=== PATIENT | female | born 1945 | race Caucasian/White ===

== ENCOUNTER 2017-12-19 23:54 | Emergency (ER) | payer MEDICARE, OTHER ==
[~2017-12-19] VITALS: Ht 154.9 cm; Wt 72.0 kg
[~2017-12-19 23:54] MED LIST: ACAR50TA11 PO; AMIT10TA6 PO; AMYL1CAP63 PO; CEPH500 PO; FERR-89 PO; GLIP10 PO; MECL12.585 PO; METF500T4 PO; PROZ10 PO; RIFAX550 PO; RISE35TA8 PO; SPIR25 PO; SUCR1TAB PO; TRAM50TA4 PO
[2017-12-20 00:03] LABS: GLUCOSE,POINT OF CARE 183 MG/DL (70-110)
[2017-12-20 01:30] VITALS: BP 114/80
== END 2017-12-20 01:50 | disposition home or self-care (01) ==
LOC: EMS 23:55
DX: S40.011A Contusion of right shoulder, initial encounter (principal); S09.90XA Unspecified injury of head, initial encounter; E11.9 Type 2 diabetes mellitus without complications; F32.9 Major depressive disorder, single episode, unspecified; I10 Essential (primary) hypertension; K74.60 Unspecified cirrhosis of liver; M48.00 Spinal stenosis, site unspecified; Z79.84 Long term (current) use of oral hypoglycemic drugs; Z88.0 Allergy status to penicillin; Z88.5 Allergy status to narcotic agent; Z90.710 Acquired absence of both cervix and uterus; W01.0XXA Fall on same level from slipping, tripping and stumbling without subsequent striking against object, initial encounter; Y93.89 Activity, other specified; Y92.89 Other specified places as the place of occurrence of the external cause; Y99.8 Other external cause status
CPT/HCPCS: 70450; 82962; 99284

== ENCOUNTER 2024-10-24 21:37 | Inpatient (IN) | payer MEDICARE, MEDICAID ==
[~2024-10-24] VITALS: Ht 154.9 cm; Wt 63.0 kg
[~2024-10-24 21:37] MED LIST changes: -ACAR50TA11 PO; +ACAR50TA2 PO; -AMIT10TA6 PO; +AMIT10TA7 PO; -CEPH500 PO; -FERR-89 PO; +FERR325T27 PO; +FLUO10CA24 PO; -GLIP10 PO; +GLIP10TA17 PO; +MECL-226 PO; -MECL12.585 PO; +METF-1211 PO; -METF500T4 PO; -PROZ10 PO; +SPIR-37 PO; -SPIR25 PO; -SUCR1TAB PO; +SUCR1TAB2 PO; -TRAM50TA4 PO; +TRAM50TA5 PO
[2024-10-24] MEDS ORDERED: 0.9% SODIUM CHLORIDE 10 ML SYRINGE IVP PRN (22:00)
[2024-10-24] MEDS: SODIUM CHLORIDE 0.9% 2,400 ML IV ONE (22:07)
[2024-10-24] MEDS: CefTRIAXone 1 GM/DEXTROSE 50 ML IV ONE (22:07)
[2024-10-24 22:16] LABS: EOSINOPHILS % (AUTO) 0 % (1.0-6.0); HEMATOCRIT 31.2 % (36-46); HEMOGLOBIN 9.9 g/dL (12.0-16.0); LYMPHOCYTES # (AUTO) 0.9 K/uL (1.0-4.8); LYMPHOCYTES % (AUTO) 7.8 % (22.0-44.0); MEAN CORPUSCULAR HEMOGLOBIN 25.6 pg (26.0-34.0); MEAN CORPUSCULAR HGB CONC 31.7 G/dL (31.0-37.0); MEAN CORPUSCULAR VOLUME 81 fL (80-100); MONOCYTES # (AUTO) 0.4 K/uL (0.1-1.0); MONOCYTES % (AUTO) 3.3 % (2.0-9.0); NEUTROPHILS # (AUTO) 10.8 K/uL (1.8-7.7); PLATELET COUNT (AUTO) 271 K/uL (150-450); RED BLOOD CELL COUNT(AUTO) 3.85 MIL/uL (4.00-5.20); RED CELL DISTRIBUTION WIDTH 15.5 % (11.5-14.5); WHITE BLOOD COUNT (AUTO) 12.1 K/uL (4.5-11.0)
[2024-10-24 22:21] LABS: NEUTROPHILS % (AUTO) 88.9 % (40.0-70.0)
[2024-10-24 22:25] LABS: PROTHROMBIN TIME 13.3 SEC (9.4-11.6)
[2024-10-24 22:33] LABS: LACTIC ACID 2.6 mmol/L (0.4-2.0); TROPONIN I-HIGH SENSITIVITY 9 ng/L (<51)
[2024-10-24 22:35] LABS: B-TYPE NATRIURETIC PEPTIDE 267 pg/mL (0-100)
[2024-10-24 22:36] LABS: ANION GAP 7 mmol/L (8-16); CALCIUM, TOTAL 7.9 mg/dL (8.8-10.5); CARBON DIOXIDE 30 mmol/L (22-29); CHLORIDE 101 mmol/L (98-107); CREATININE 1.61 mg/dL (0.60-1.30); GLOMERULAR FILTR. RATE CALC 31 mL/min (>60); GLUCOSE,RANDOM 351 mg/dL (70-110); LIPASE < 10 U/L (16-77); POTASSIUM 3.4 mmol/L (3.5-5.1); SODIUM SERUM 138 mmol/L (136-145); UREA NITROGEN, BLOOD 22 mg/dL (7-18)
[2024-10-24] MEDS: NOREPINEPHRINE 8 MG/0.9 % NACL 250 ML IV PRN (22:48)
[2024-10-24 23:05] LABS: COVID AG,FIA SOURCE NASAL SWAB
[2024-10-24 23:10] LABS: APPEARANCE,URINE CLEAR (CLEAR); BILIRUBIN,URINE NEGATIVE (NEGATIVE); COLOR,URINE YELLOW (YELLOW); GLUCOSE, URINE (UA) NEGATIVE (NEGATIVE); KETONES,URINE NEGATIVE (NEGATIVE); LEUKOCYTE ESTERASE ,URINE MODERATE (NEGATIVE); NITRATE,URINE NEGATIVE (NEGATIVE); OCCULT BLOOD,URINE NEGATIVE (NEGATIVE); PROTEIN,URINE TRACE mg/dL (NEGATIVE); SPECIFIC GRAVITIY, URINE 1.014 (1.003-1.030); UROBILINOGEN,URINE <=1.0 mg/dL (<=1.0)
[2024-10-24 23:27] LABS: BACTERIA,URINE Moderate /HPF (None Seen); RBC,URINE 0-2 /HPF (0-2)
[2024-10-24 23:28] LABS: INFLUENZA TYPE A NEGATIVE FOR TYPE A (NEGATIVE); INFLUENZA TYPE B NEGATIVE FOR TYPE B (NEGATIVE); SARS-COV2 (COVID) ANTIGEN,FIA Negative (Negative)
[2024-10-25] VITALS (8 sets, daily range): BP systolic 107–126; BP diastolic 54–58; PULSE 80–101; RESP 19–23; TEMP 97.3–97.7; O2SAT 93–99
[2024-10-25] MEDS ORDERED: ONDANSETRON HCL 4 MG/2 ML VIAL IVP PRN
[2024-10-25] MEDS ORDERED: DEXTROSE 50%-WATER 25 GM/50 ML SYRINGE IVP PRN
[2024-10-25] MEDS ORDERED: BISACODYL 10 MG RECTAL RECTAL SUPPOSITORY PR PRN
[2024-10-25] MEDS: HEPARIN SODIUM,PORCINE 5,000 UNITS/ML VIAL SQ SCH
[2024-10-25] MEDS: *CLINICAL-LEVOFLOXACIN IVPB DOSING CLINICAL ONE (00:05)
[2024-10-25] MEDS: VANCOMYCIN 1.25 GM/WATER(PEG) 250 ML IV ONE (00:30)
[2024-10-25] MEDS ORDERED: LEVOFLOXACIN 250 MG TABLET PO SCH (01:00)
[2024-10-25] MEDS: LEVOFLOXACIN 750 MG/D5% WATER 150 ML IV SCH (01:22)
[2024-10-25] MEDS: LORazepam 2 MG/ML VIAL IVP ONE (03:14)
[2024-10-25 05:41] LABS: CALCIUM, TOTAL 8.1 mg/dL (8.8-10.5); CREATININE 1.59 mg/dL (0.60-1.30); POTASSIUM 3.3 mmol/L (3.5-5.1)
[2024-10-25] MEDS ORDERED: VANCOMYCIN HCL 750 MG in DEXTROSE 5%-WATER 250 ML IV SCH (08:00)
[2024-10-25 08:10] LABS: ABG BASE EXCESS -1.2 mmol/L (-2.0-3.0); ABG CARBOXYHEMOGLOBIN 0.5 % (0.5-1.5); ABG HCO3 23.1 mmol/L (21.0-28.0); ABG METHEMOGLOBIN 0.3 % (0.0-1.5); ABG OXYGEN CONTENT 16.3 mL/dL (15.0-23.0); ABG OXYGEN SATURATION 95.3 % (94.0-98.0); ABG OXYHEMOGLOBIN 94.5 % (94.0-98.0); ABG PCO2 50 mmHg (32.0-45.0); ABG PH 7.315 (7.350-7.450); ABG TOTAL HEMOGLOBIN 12.2 G/dL (12.0-16.0); PO2, ARTERIAL BG 90.6 mmHg (83.0-108.0); SOURCE, BLOOD GAS ARTERIAL; TEMPERATURE, FAHRENHEIT, BG 99.1 FAHREN (96.0-98.6)
[2024-10-25 08:13] LABS: SITE, BLOOD GAS LFT RADIAL
[2024-10-25 08:14] LABS: ALLEN TEST, BLOOD GAS Positive; O2 DEVICE,BLOOD GAS NON REBREATHER (ROOM AIR)
[2024-10-25] MEDS ORDERED: SODIUM CHLORIDE 0.9% 500 ML IV ONE ×2 (09:11→14:39)
[2024-10-25] MEDS: PANTOPRAZOLE SODIUM 40 MG/VIAL IVP SCH (09:57)
[2024-10-25] MEDS: INSULIN LISPRO 100 UNITS/ML SQ PRN (09:58)
[2024-10-25] MEDS: POTASSIUM CHL 10 MEQ/WATER 50 ML IV PRN (09:59)
[2024-10-25 11:30] LABS: GLUCOMETER DEV NAME(LOC) ICUN.5; GLUCOSE,POINT OF CARE 234 MG/DL (70-110)
[2024-10-25] MEDS: VANCOMYCIN HCL 750 MG in DEXTROSE 5%-WATER 250 ML IV ONE (14:37)
[2024-10-25] MEDS ORDERED: DEXTROSE 5%-0.9% SODIUM CHL 1,000 ML IV SCH (18:30)
[2024-10-25 19:16] LABS: GLUCOMETER DEV NAME(LOC) ICU.S6; GLUCOSE,POINT OF CARE 93 MG/DL (70-110)
[2024-10-25 19:16] LABS: GLUCOMETER DEV NAME(LOC) ICU.S6; GLUCOSE,POINT OF CARE 137 MG/DL (70-110)
[2024-10-25] MEDS: DEXTROSE 5%-LACTATED RINGERS 1,000 ML IV SCH (20:11)
[2024-10-25] MEDS: CHLORHEXIDINE GLUCONATE 2% TOWELETTE [2'S/6'S] TP SCH (21:24)
[2024-10-25] MEDS: CefTRIAXone 1 GM/DEXTROSE 50 ML IV SCH (21:24)
[2024-10-26] VITALS (9 sets, daily range): BP systolic 136–156; BP diastolic 50–74; PULSE 81–95; RESP 18–25; TEMP 96.9–98.5; O2SAT 89–96
[2024-10-26 00:01] LABS: GLUCOMETER DEV NAME(LOC) ICU.S6; GLUCOSE,POINT OF CARE 70 MG/DL (70-110)
[2024-10-26] MEDS: POTASSIUM CHLORIDE 20 MEQ ER TABLET PO PRN (02:39)
[2024-10-26 06:35] LABS: CALCIUM, TOTAL 8.1 mg/dL (8.8-10.5); CREATININE 1.4 mg/dL (0.60-1.30); POTASSIUM 3.4 mmol/L (3.5-5.1)
[2024-10-26 06:46] LABS: GLUCOMETER DEV NAME(LOC) ICU.S6; GLUCOSE,POINT OF CARE 115 MG/DL (70-110)
[2024-10-26 07:55] LABS: BASOPHILS % (AUTO) 0.4 % (0.0-2.0); EOSINOPHILS % (AUTO) 1.4 % (1.0-6.0); HEMOGLOBIN 10.7 g/dL (12.0-16.0); LYMPHOCYTES # (AUTO) 2.3 K/uL (1.0-4.8); LYMPHOCYTES % (AUTO) 29.5 % (22.0-44.0); MEAN CORPUSCULAR HGB CONC 32.5 G/dL (31.0-37.0); MEAN CORPUSCULAR VOLUME 80 fL (80-100); MONOCYTES # (AUTO) 0.8 K/uL (0.1-1.0); MONOCYTES % (AUTO) 9.8 % (2.0-9.0); NEUTROPHILS # (AUTO) 4.7 K/uL (1.8-7.7); NEUTROPHILS % (AUTO) 58.9 % (40.0-70.0); PLATELET COUNT (AUTO) 335 K/uL (150-450); RED BLOOD CELL COUNT(AUTO) 4.11 MIL/uL (4.00-5.20); RED CELL DISTRIBUTION WIDTH 15.1 % (11.5-14.5); WHITE BLOOD COUNT (AUTO) 7.9 K/uL (4.5-11.0)
[2024-10-26] MEDS: VANCOMYCIN HCL 750 MG in DEXTROSE 5%-WATER 250 ML IV SCH (07:57)
[2024-10-26] MEDS: LABETALOL HCL 5 MG/ML 20 ML VIAL IVP PRN (16:40)
[2024-10-26 16:51] LABS: GLUCOMETER DEV NAME(LOC) ICUN.5; GLUCOSE,POINT OF CARE 125 MG/DL (70-110)
[2024-10-26 19:46] LABS: GLUCOMETER DEV NAME(LOC) ICUN.5; GLUCOSE,POINT OF CARE 167 MG/DL (70-110)
[2024-10-26 23:16] LABS: GLUCOMETER DEV NAME(LOC) ICU.S6; GLUCOSE,POINT OF CARE 116 MG/DL (70-110)
[2024-10-27] VITALS (9 sets, daily range): BP systolic 133–161; BP diastolic 71–88; PULSE 86–107; RESP 17–23; TEMP 93.8–98.8; O2SAT 93–97
[2024-10-27 06:16] LABS: BASOPHILS % (AUTO) 0.3 % (0.0-2.0); EOSINOPHILS % (AUTO) 2.5 % (1.0-6.0); HEMATOCRIT 34.8 % (36-46); HEMOGLOBIN 11.5 g/dL (12.0-16.0); LYMPHOCYTES # (AUTO) 2.1 K/uL (1.0-4.8); LYMPHOCYTES % (AUTO) 40.6 % (22.0-44.0); MEAN CORPUSCULAR HEMOGLOBIN 26.2 pg (26.0-34.0); MEAN CORPUSCULAR HGB CONC 33.2 G/dL (31.0-37.0); MEAN CORPUSCULAR VOLUME 79 fL (80-100); MONOCYTES # (AUTO) 0.6 K/uL (0.1-1.0); MONOCYTES % (AUTO) 10.8 % (2.0-9.0); NEUTROPHILS # (AUTO) 2.4 K/uL (1.8-7.7); NEUTROPHILS % (AUTO) 45.8 % (40.0-70.0); PLATELET COUNT (AUTO) 377 K/uL (150-450); RED CELL DISTRIBUTION WIDTH 14.8 % (11.5-14.5); WHITE BLOOD COUNT (AUTO) 5.2 K/uL (4.5-11.0)
[2024-10-27 06:22] LABS: CALCIUM, TOTAL 8.4 mg/dL (8.8-10.5); CREATININE 1.19 mg/dL (0.60-1.30); POTASSIUM 4.1 mmol/L (3.5-5.1); VANCOMYCIN,RANDOM 19.4 mcg/mL (25.0-50.0)
[2024-10-27 07:16] LABS: GLUCOMETER DEV NAME(LOC) ICU.S6; GLUCOSE,POINT OF CARE 177 MG/DL (70-110)
[2024-10-27] MEDS: MELATONIN 5 MG TABLET PO PRN (20:48)
[2024-10-27] MEDS ORDERED: SODIUM CHLORIDE 0.9% 250 ML IV ONE (22:06)
[2024-10-28] VITALS (11 sets, daily range): BP systolic 123–165; BP diastolic 61–75; PULSE 76–107; RESP 17–20; TEMP 97.6–98.9; O2SAT 87–95
[2024-10-28 00:41] LABS: GLUCOMETER DEV NAME(LOC) ICUN.5; GLUCOSE,POINT OF CARE 207 MG/DL (70-110)
[2024-10-28 05:41] LABS: GLUCOMETER DEV NAME(LOC) 5N.2C; GLUCOSE,POINT OF CARE 321 MG/DL (70-110)
[2024-10-28 05:41] LABS: GLUCOMETER DEV NAME(LOC) 5N.2C; GLUCOSE,POINT OF CARE 190 MG/DL (70-110)
[2024-10-28 06:40] LABS: CALCIUM, TOTAL 8.4 mg/dL (8.8-10.5); POTASSIUM 3.9 mmol/L (3.5-5.1)
[2024-10-28] MEDS ORDERED: LIDOCAINE/PF 1% 30 ML VIAL ONE (09:52)
[2024-10-28] MEDS ORDERED: MIDAZOLAM HCL 2 MG/2 ML VIAL ONE ×2 (09:52→12:35)
[2024-10-28] MEDS ORDERED: FentaNYL CITRATE PF 100 MCG/2 ML VIAL ONE ×2 (09:53→12:35)
[2024-10-28 12:21] LABS: GLUCOMETER DEV NAME(LOC) 5N.2C; GLUCOSE,POINT OF CARE 203 MG/DL (70-110)
[2024-10-28] MEDS: FentaNYL CITRATE PF 100 MCG/2 ML VIAL IVP ONE (12:36)
[2024-10-28] MEDS: MIDAZOLAM HCL 2 MG/2 ML VIAL IVP ONE (12:36)
[2024-10-28] MEDS: *CLINICAL-MEROPENEM DOSING CLINICAL ONE (12:39)
[2024-10-28] MEDS: ACETAMINOPHEN 325 MG TABLET PO PRN (14:10)
[2024-10-28] MEDS: MEROPENEM 1 GM in SODIUM CHLORIDE 0.9% 100 ML IV SCH (14:11)
[2024-10-28 17:21] LABS: GLUCOMETER DEV NAME(LOC) 5S.1D; GLUCOSE,POINT OF CARE 189 MG/DL (70-110)
[2024-10-28 19:31] LABS: GLUCOMETER DEV NAME(LOC) 5N.2C; GLUCOSE,POINT OF CARE 252 MG/DL (70-110)
[2024-10-29] VITALS (9 sets, daily range): BP systolic 138–152; BP diastolic 60–79; PULSE 90–152; RESP 18–20; TEMP 97.8–100.1; O2SAT 95–99
[2024-10-29] MEDS ORDERED: SODIUM CHLORIDE 0.9% 250 ML IV ONE (00:41)
[2024-10-29 08:31] LABS: CALCIUM, TOTAL 8.2 mg/dL (8.8-10.5); CREATININE 1.02 mg/dL (0.60-1.30); POTASSIUM 4.1 mmol/L (3.5-5.1)
[2024-10-29 11:31] LABS: GLUCOMETER DEV NAME(LOC) 5N.2C; GLUCOSE,POINT OF CARE 320 MG/DL (70-110)
[2024-10-29 11:31] LABS: GLUCOMETER DEV NAME(LOC) 5N.2C; GLUCOSE,POINT OF CARE 171 MG/DL (70-110)
[2024-10-29] MEDS ORDERED: ASCO500T22 PO (13:17)
[2024-10-29] MEDS ORDERED: IPRA3AMP23 NEB (13:17)
[2024-10-29] MEDS ORDERED: APIX2.5T PO (13:17)
[2024-10-29] MEDS ORDERED: LACT10SO85 PO (13:17)
[2024-10-29] MEDS ORDERED: MAGN200T5 PO (13:17)
[2024-10-29] MEDS ORDERED: TRAZ-186 PO (13:17)
[2024-10-29] MEDS ORDERED: BISA10SU61 PR (13:17)
[2024-10-29] MEDS ORDERED: PROP10TA73 PO (13:17)
[2024-10-29] MEDS ORDERED: LIDO1ADH83 TP (13:17)
[2024-10-29] MEDS ORDERED: HYDR-4396 PO (13:17)
[2024-10-29] MEDS ORDERED: DIGO125T71 PO (13:17)
[2024-10-29] MEDS ORDERED: VITA1CAP17 PO (13:17)
[2024-10-29] MEDS ORDERED: QUET25TA PO (13:17)
[2024-10-29] MEDS ORDERED: BACL10TA PO (13:17)
[2024-10-29] MEDS ORDERED: DULO-113 PO (13:17)
[2024-10-29] MEDS ORDERED: FURO-151 PO (13:17)
[2024-10-29] MEDS ORDERED: AMYL1CAP61 PO (13:17)
[2024-10-29] MEDS ORDERED: RIFA300C62 PO (13:17)
[2024-10-29 15:41] LABS: GLUCOMETER DEV NAME(LOC) 5S.1D; GLUCOSE,POINT OF CARE 241 MG/DL (70-110)
[2024-10-29] MEDS: DIGOXIN 250 MCG/ML 2 ML AMP IVP ONE (16:02)
[2024-10-30] VITALS (13 sets, daily range): BP systolic 126–150; BP diastolic 61–75; PULSE 63–110; RESP 16–20; TEMP 97.9–99.1; O2SAT 95–98
[2024-10-30 02:26] LABS: GLUCOMETER DEV NAME(LOC) 5S.1D; GLUCOSE,POINT OF CARE 211 MG/DL (70-110)
[2024-10-30 02:26] LABS: GLUCOMETER DEV NAME(LOC) 5S.1D; GLUCOSE,POINT OF CARE 177 MG/DL (70-110)
[2024-10-30 07:10] LABS: GLUCOMETER DEV NAME(LOC) 5N.2C; GLUCOSE,POINT OF CARE 159 MG/DL (70-110)
[2024-10-30 07:22] LABS: CALCIUM, TOTAL 8.8 mg/dL (8.8-10.5); CREATININE 1.02 mg/dL (0.60-1.30); POTASSIUM 4.5 mmol/L (3.5-5.1); THYROID STIMULATING HORMONE 1.89 uIU/mL (0.36-3.74)
[2024-10-30 07:24] LABS: TROPONIN I-HIGH SENSITIVITY 15 ng/L (<51)
[2024-10-30] MEDS: METOPROLOL TARTRATE 25 MG TABLET PO SCH ×2 (08:34→20:23)
[2024-10-30] MEDS ORDERED: SODIUM CHLORIDE 0.9% 500 ML IV ONE (08:54)
[2024-10-30] MEDS ORDERED: 0.9% SODIUM CHLORIDE 5 ML NEB SOLUTION NEB ONE (10:53)
[2024-10-30 11:00] LABS: GLUCOMETER DEV NAME(LOC) 5N.2C; GLUCOSE,POINT OF CARE 244 MG/DL (70-110)
[2024-10-30] MEDS: ALBUTEROL SULFATE 2.5 MG/0.5 ML NEB SOLUTION NEB PRN (11:06)
[2024-10-30] MEDS: FUROSEMIDE 20 MG/2 ML VIAL IVP ONE (11:07)
[2024-10-30 18:36] LABS: GLUCOMETER DEV NAME(LOC) 5N.2C; GLUCOSE,POINT OF CARE 301 MG/DL (70-110)
[2024-10-31] VITALS (9 sets, daily range): BP systolic 111–149; BP diastolic 50–111; PULSE 69–101; RESP 18; TEMP 97.5–100.9; O2SAT 93–98
[2024-10-31 06:46] LABS: GLUCOMETER DEV NAME(LOC) 5S.1D; GLUCOSE,POINT OF CARE 199 MG/DL (70-110)
[2024-10-31 07:29] LABS: CALCIUM, TOTAL 8.6 mg/dL (8.8-10.5); CREATININE 1.09 mg/dL (0.60-1.30); POTASSIUM 4.5 mmol/L (3.5-5.1)
[2024-10-31 13:11] LABS: GLUCOMETER DEV NAME(LOC) 5S.2D; GLUCOSE,POINT OF CARE 182 MG/DL (70-110)
[2024-10-31 13:11] LABS: GLUCOMETER DEV NAME(LOC) 5S.2D; GLUCOSE,POINT OF CARE 224 MG/DL (70-110)
[2024-10-31 18:00] LABS: GLUCOMETER DEV NAME(LOC) 5S.2D; GLUCOSE,POINT OF CARE 179 MG/DL (70-110)
[2024-10-31 22:35] LABS: GLUCOMETER DEV NAME(LOC) 5S.2D; GLUCOSE,POINT OF CARE 250 MG/DL (70-110)
[2024-11-01 05:21] VITALS: BP 125/57; PULSE 78; RESP 18; TEMP 98.5; O2SAT 94
[2024-11-01 07:38] LABS: CALCIUM, TOTAL 8.7 mg/dL (8.8-10.5); CREATININE 1.09 mg/dL (0.60-1.30); POTASSIUM 4.7 mmol/L (3.5-5.1)
[2024-11-01 08:17] VITALS: BP 121/60; PULSE 80; RESP 16; TEMP 97.6; O2SAT 94
[2024-11-01 10:11] LABS: BASOPHILS % (AUTO) 0.5 % (0.0-2.0); EOSINOPHILS % (AUTO) 4.4 % (1.0-6.0); HEMATOCRIT 38.3 % (36-46); HEMOGLOBIN 12.7 g/dL (12.0-16.0); LYMPHOCYTES # (AUTO) 3.1 K/uL (1.0-4.8); LYMPHOCYTES % (AUTO) 36.4 % (22.0-44.0); MEAN CORPUSCULAR HEMOGLOBIN 26.5 pg (26.0-34.0); MEAN CORPUSCULAR HGB CONC 33.2 G/dL (31.0-37.0); MEAN CORPUSCULAR VOLUME 80 fL (80-100); MONOCYTES # (AUTO) 0.8 K/uL (0.1-1.0); MONOCYTES % (AUTO) 9.8 % (2.0-9.0); NEUTROPHILS # (AUTO) 4.1 K/uL (1.8-7.7); NEUTROPHILS % (AUTO) 48.9 % (40.0-70.0); PLATELET COUNT (AUTO) 365 K/uL (150-450); WHITE BLOOD COUNT (AUTO) 8.4 K/uL (4.5-11.0)
[2024-11-01 11:37] VITALS: BP 129/62; PULSE 74; RESP 18; RESP 8; TEMP 98.1; O2SAT 95
[2024-11-01 15:51] VITALS: BP 119/56; PULSE 82; RESP 17; TEMP 97.7; O2SAT 96
[2024-11-01 17:40] LABS: GLUCOMETER DEV NAME(LOC) 5S.2D; GLUCOSE,POINT OF CARE 160 MG/DL (70-110)
[2024-11-01 17:41] LABS: GLUCOMETER DEV NAME(LOC) 5S.2D; GLUCOSE,POINT OF CARE 295 MG/DL (70-110)
[2024-11-01 19:20] LABS: GLUCOMETER DEV NAME(LOC) 5N.2C; GLUCOSE,POINT OF CARE 178 MG/DL (70-110)
[2024-11-01 19:53] VITALS: BP_SYST 132; BP_SYST 32; BP_DIAS 57; PULSE 90; RESP 18; TEMP 97.7; O2SAT 95
[2024-11-01 22:15] LABS: GLUCOMETER DEV NAME(LOC) 5S.2D; GLUCOSE,POINT OF CARE 272 MG/DL (70-110)
[2024-11-02 00:36] VITALS: BP 118/53; PULSE 77; RESP 17; TEMP 99.1; O2SAT 94
[2024-11-02 05:53] VITALS: BP 120/55; PULSE 80; RESP 18; TEMP 98.7; O2SAT 95
[2024-11-02 07:16] LABS: GLUCOMETER DEV NAME(LOC) 5N.2C; GLUCOSE,POINT OF CARE 141 MG/DL (70-110)
[2024-11-02 07:31] LABS: CALCIUM, TOTAL 8.7 mg/dL (8.8-10.5); CREATININE 1.14 mg/dL (0.60-1.30); POTASSIUM 4.3 mmol/L (3.5-5.1)
[2024-11-02 08:14] VITALS: BP 125/62; PULSE 87; RESP 17; TEMP 97.8; O2SAT 96
[2024-11-02 11:50] VITALS: BP 112/50; PULSE 70; RESP 18; TEMP 97.9; O2SAT 96
[2024-11-02 12:36] LABS: GLUCOMETER DEV NAME(LOC) 5S.2D; GLUCOSE,POINT OF CARE 192 MG/DL (70-110)
[2024-11-02 16:57] VITALS: BP_SYST 111; BP_SYST 123; BP_DIAS 69; BP_DIAS 72; PULSE 78; RESP 17; TEMP 97.5; TEMP 98.1; O2SAT 98; O2SAT 99
[2024-11-02 17:35] LABS: GLUCOMETER DEV NAME(LOC) 5N.2C; GLUCOSE,POINT OF CARE 296 MG/DL (70-110)
[2024-11-02 21:16] VITALS: BP 122/60; PULSE 79; RESP 18; TEMP 97.9; O2SAT 94
[2024-11-02 22:45] LABS: GLUCOMETER DEV NAME(LOC) 5S.2D; GLUCOSE,POINT OF CARE 185 MG/DL (70-110)
[2024-11-03] VITALS: BP 114/50; PULSE 74; RESP 17; O2SAT 95
[2024-11-03 06:11] VITALS: BP 110/55; PULSE 73; RESP 17; TEMP 97.7; O2SAT 94
[2024-11-03 07:20] LABS: CALCIUM, TOTAL 8.9 mg/dL (8.8-10.5); CREATININE 1.09 mg/dL (0.60-1.30); POTASSIUM 3.9 mmol/L (3.5-5.1)
[2024-11-03 07:31] VITALS: BP 121/56; PULSE 76; RESP 18; TEMP 97.3; O2SAT 95
[2024-11-03] MEDS: FUROSEMIDE 20 MG/2 ML VIAL IVP ONE (08:24)
[2024-11-03 08:34] LABS: SPECIMENTYPE,BODY FLUID THORAV
[2024-11-03 09:42] LABS: APPEARANCE,SPUN,BODY FLUID CLEAR (CLEAR); APPEARANCE,UNSPUN,BODY FLUID CLEAR (CLEAR); COLOR,BODY FLUID LT YELLOW (LT YELLOW); TOTAL VOLUME,BODY FLUID 60 mL
[2024-11-03 09:43] LABS: BASOPHILS,BODY FLUID 0 %; EOSINOPHILS,BF (ANAL) 0 %; LYMPHOCYTES,BODY FLUID 64 %; MONOCYTES,BODY FLUID 4 %; NEUTROPHILS,BODY FLUID 32 %; WBC, BODY FLUID 6 /cu. mm.
[2024-11-03 12:20] VITALS: BP 124/71; PULSE 77; RESP 17; TEMP 97.9; O2SAT 97
[2024-11-03] MEDS ORDERED: KETO15CR2 TP (14:07)
[2024-11-03] MEDS ORDERED: SITA50 PO (14:07)
[2024-11-03] MEDS ORDERED: MAGN400T57 PO (14:07)
[2024-11-03] MEDS ORDERED: HYDR-4062 PO (14:07)
[2024-11-03] MEDS ORDERED: INSU100I94 SQ (14:07)
[2024-11-03] MEDS ORDERED: LIDO700A30 TD (14:07)
[2024-11-03] MEDS ORDERED: INSU100I3 SQ (14:07)
[2024-11-03] MEDS ORDERED: ESTR42.510 VG (14:07)
[2024-11-03 14:35] LABS: GLUCOMETER DEV NAME(LOC) 5S.2D; GLUCOSE,POINT OF CARE 164 MG/DL (70-110)
[2024-11-03 14:35] LABS: GLUCOMETER DEV NAME(LOC) 5S.2D; GLUCOSE,POINT OF CARE 250 MG/DL (70-110)
[2024-11-03 15:29] VITALS: BP 109/52; PULSE 76; RESP 18; TEMP 98.7; O2SAT 96
[2024-11-03] MEDS: TraMADol HCL 50 MG TABLET PO PRN (15:29)
[2024-11-03 19:33] VITALS: BP 108/54; PULSE 76; RESP 18; TEMP 98.6; O2SAT 95
[2024-11-04 00:19] VITALS: BP 115/55; PULSE 84; RESP 18; TEMP 98.1; O2SAT 94
[2024-11-04 04:23] VITALS: BP 135/58; PULSE 93; RESP 18; TEMP 98.2; O2SAT 95
[2024-11-04 08:01] LABS: CALCIUM, TOTAL 9.1 mg/dL (8.8-10.5); CREATININE 1.22 mg/dL (0.60-1.30); POTASSIUM 3.6 mmol/L (3.5-5.1); VANCOMYCIN,RANDOM 24.5 mcg/mL (25.0-50.0)
[2024-11-04 10:20] VITALS: BP 112/52; PULSE 106; RESP 18; TEMP 98.1; O2SAT 92
[2024-11-04 11:25] LABS: GLUCOMETER DEV NAME(LOC) 5S.2D; GLUCOSE,POINT OF CARE 219 MG/DL (70-110)
[2024-11-04 16:33] VITALS: BP 126/55; PULSE 88; RESP 16; TEMP 97.7; O2SAT 94
[2024-11-04 19:11] LABS: GLUCOMETER DEV NAME(LOC) 5N.1D; GLUCOSE,POINT OF CARE 138 MG/DL (70-110)
[2024-11-04 19:11] LABS: GLUCOMETER DEV NAME(LOC) 5N.2C; GLUCOSE,POINT OF CARE 250 MG/DL (70-110)
[2024-11-04 19:11] LABS: GLUCOMETER DEV NAME(LOC) 5N.2C; GLUCOSE,POINT OF CARE 280 MG/DL (70-110)
[2024-11-04 19:11] LABS: GLUCOMETER DEV NAME(LOC) 5N.1D; GLUCOSE,POINT OF CARE 173 MG/DL (70-110)
[2024-11-04 20:13] VITALS: BP 109/46; PULSE 81; RESP 18; TEMP 98.6; O2SAT 99
[2024-11-04 23:20] VITALS: BP 111/46; PULSE 89; RESP 18; TEMP 98.2; O2SAT 94
[2024-11-05 04:16] LABS: GLUCOMETER DEV NAME(LOC) 5N.1D; GLUCOSE,POINT OF CARE 226 MG/DL (70-110)
[2024-11-05 05:47] VITALS: BP 99/44; PULSE 104; RESP 18; TEMP 99.5; O2SAT 94
[2024-11-05 06:20] VITALS: TEMP 98.6
[2024-11-05 07:52] VITALS: BP 104/54; PULSE 103; RESP 18; TEMP 98.5; O2SAT 95
[2024-11-05 11:07] LABS: TOTAL PROTEIN,BODY FLUID,REF 3.2 g/dL
[2024-11-05 11:29] VITALS: BP 118/49; PULSE 72; RESP 18; TEMP 98.5; O2SAT 96
[2024-11-05 13:45] LABS: GLUCOMETER DEV NAME(LOC) 5N.2C; GLUCOSE,POINT OF CARE 145 MG/DL (70-110)
[2024-11-05 13:46] LABS: GLUCOMETER DEV NAME(LOC) 5N.2C; GLUCOSE,POINT OF CARE 216 MG/DL (70-110)
[2024-11-06] MEDS ORDERED: VANCOMYCIN 1GM/WATER(PEG/NADA) 200 ML IV SCH (08:00)
== END 2024-11-05 13:10 | DRG 871 ==
LOC: EMS 21:37 → EDH 10-25 00:17 → ICU 10-25 06:53 → 5S 10-27 17:20
PROVIDERS: ADMIT Internal Medicine; ATTEND Internal Medicine
PROC: 5A0945A Assistance with Respiratory Ventilation, 24-96 Consecutive Hours, High Flow/Velocity Cannula (ICD-10-PCS; 2024-10-25)
PROC: 0W9B30Z Drainage of Left Pleural Cavity with Drainage Device, Percutaneous Approach (ICD-10-PCS; principal; 2024-10-28)
PROC: 0WPBX0Z Removal of Drainage Device from Left Pleural Cavity, External Approach (ICD-10-PCS; 2024-11-04)
DX: A41.9 Sepsis, unspecified organism (principal); G92.8 Other toxic encephalopathy; J96.01 Acute respiratory failure with hypoxia; R65.21 Severe sepsis with septic shock; J15.69 Pneumonia due to other Gram-negative bacteria; I50.43 Acute on chronic combined systolic (congestive) and diastolic (congestive) heart failure; N17.9 Acute kidney failure, unspecified; N39.0 Urinary tract infection, site not specified; I13.0 Hypertensive heart and chronic kidney disease with heart failure and stage 1 through stage 4 chronic kidney disease, or unspecified chronic kidney disease; I31.39 Other pericardial effusion (noninflammatory); J91.8 Pleural effusion in other conditions classified elsewhere; Z16.12 Extended spectrum beta lactamase (ESBL) resistance; E44.0 Moderate protein-calorie malnutrition; E11.22 Type 2 diabetes mellitus with diabetic chronic kidney disease; E11.65 Type 2 diabetes mellitus with hyperglycemia; E87.6 Hypokalemia; Y95 Nosocomial condition; B96.20 Unspecified Escherichia coli [E. coli] as the cause of diseases classified elsewhere; B96.1 Klebsiella pneumoniae [K. pneumoniae] as the cause of diseases classified elsewhere; D64.9 Anemia, unspecified; Z20.822 Contact with and (suspected) exposure to COVID-19; Z85.07 Personal history of malignant neoplasm of pancreas; K75.81 Nonalcoholic steatohepatitis (NASH); K74.60 Unspecified cirrhosis of liver; F03.90 Unspecified dementia, unspecified severity, without behavioral disturbance, psychotic disturbance, mood disturbance, and anxiety; I48.0 Paroxysmal atrial fibrillation; N18.9 Chronic kidney disease, unspecified; Z88.0 Allergy status to penicillin; Z88.5 Allergy status to narcotic agent; Z90.411 Acquired partial absence of pancreas; Z90.710 Acquired absence of both cervix and uterus; I07.1 Rheumatic tricuspid insufficiency; I35.1 Nonrheumatic aortic (valve) insufficiency
CPT/HCPCS: 36600; 51702; 71045; 71250; 76942; 80048; 80202; 81001; 82465; 82805; 82945; 82962; 83605; 83615; 83690; 83880; 83986; 84132; 84145; 84157; 84443; 84484; 85025; 85610; 87015; 87040; 87075; 87077; 87081; 87086; 87101; 87186; 87205; 87206; 87481; 87804; 88108; 88305; 89051; 92610; 93005; 93306; 94640; 97110; 97116; 97163; 97530; 99241; 99285; J0696; J1160; J1644; J1940; J1956; J2060; J2185; J2250; J2470; J3010; J3370; J3480; J3490; J7040; J7050; J7060; 36415-L1; 36415-TC; 87070; J7613; Z7500